=== PATIENT | female | born 2000 | race African-American/Black ===

== ENCOUNTER 2020-09-07 22:46 | Emergency (ER) | payer OTHER, SELFPAY ==
[2020-09-07 22:49] VITALS: BP 148/75; PULSE 138; RESP 18; TEMP 36.7; O2SAT 100
--- NOTE | 2020-09-07 23:09 | ED.EXTPRO ---
HPI - Extremity Problem General Chief complaint: Extremity Problem,Nontraumatic Stated complaint: possible blood clot Time Seen by Provider: 09/07/20 22:52 Source: patient Mode of arrival: ambulatory Limitations: no limitations History of Present Illness HPI Narrative: Patient is a 20-year-old female complaining of right lower extremity pain, right leg pain described as stiffness started approximately 2 days ago. Patient was seen at an urgent care today was told to go to the emergency room to rule out a blood clot. She denies any injury to her right lower extremity. Patient states that she has a -control implant on her left arm. Patient also states that if we can refill her BV prescription was prescribed and June that she lost. Patient states that she is currently on her menstrual cycle that started approximately 2 days ago. Patient denies any chest pain, shortness of breath or fever. Patient states that her heart rate is elevated because she just had an panic attack prior to arrival, states she has a history of anxiety. Review of Systems Review of Systems: All systems reviewed & are unremarkable except as noted in HPI and below Constitutional: Constitutional: Denies body ache(s), Denies chills, Denies excessive sweating, Denies fatigue, Denies fever(s), Denies headache(s), Denies lethargy, Denies malaise, Denies weakness and Denies weight loss Eyes: Eyes: Denies blurry vision, Denies change in vision and Denies loss of vision ENT: Denies dizziness, Denies ear discharge, Denies headache(s), Denies lip swelling, Denies epistaxis, Denies nasal congestion, Denies neck pain, Denies throat swelling and Denies tongue swelling Cardiovascular: Cardiovascular: Denies chest pain, Denies chest pain at rest, Denies chest pain with activity, Denies diaphoresis, Denies rapid heart rate, Denies edema, Denies irregular heart rhythm, Denies lightheadedness, Denies palpitations, Denies dyspnea and Denies dyspnea on exertion Respiratory: Respiratory: Denies chest congestion, Denies cough, Denies hemoptysis, Denies dyspnea and Denies dyspnea on exertion Gastrointestinal: Gastrointestinal: Denies abdominal pain, Denies melena, Denies hematochezia, Denies diarrhea, Denies nausea, Denies vomiting and Denies hematemesis Musculoskeletal: Musculoskeletal: Denies abnormal gait, Denies deformity, Denies limited range of motion, Denies neck pain and Denies numbness Neurologic: Denies Abnormal speech present, Denies abnormal gait, Denies confusion, Denies dizziness, Denies headache(s), Denies focal weakness, Denies loss of vision, Denies numbness, Denies Other visual disturbances, Denies Sensory deficit (Neuro) and Denies weakness Psychiatric: Psychiatric: Reports anxiety, Denies confusion, Denies depression, Denies auditory hallucinations, Denies homicidal ideation and Denies suicidal ideation Endocrine: Endocrine: Denies cold intolerance, Denies excessive sweating, Denies fatigue, Denies heat intolerance and Denies palpitations Hematologic/Lymphatic: Hematologic/Lymphatic: Denies easy bleeding and Denies easy bruising Allergic/Immunologic: Allergic/Immunologic: Denies lip swelling, Denies throat swelling and Denies tongue swelling Exam Const: General: cooperative, healthy appearing, comfortable, no acute distress, well developed, alert and awake; No confusion Orientation/consciousness: oriented to person, oriented to place, oriented to time, patient oriented x3 and No confusion Limitations: no limitations HENMT: Head: normal to inspection, normocephalic and atraumatic Ears: hearing grossly normal bilaterally, TM normal on the right and TM normal on the left General nose exam: Normal external nose present, Normal nares present and No nasal discharge present Face and sinus: normal facial exam Eyes: General: appearance normal, both eyes and all related structures Neck: Neck: normal visual inspection Resp: Effort & Inspection: normal respiratory effort, ab
[2020-09-08] MEDS: ENOXAPARIN 100 MG/ML SYRINGE SUB-Q (00:07)
[2020-09-08 00:15] VITALS: BP 149/79; PULSE 97; RESP 16; TEMP 36.6; O2SAT 100
== END 2020-09-08 00:17 | disposition home or self-care (01) ==
LOC: ANHED 23:23
PROVIDERS: Emergency Provider Emergency Medicine
DX: M79.604 Pain in right leg (principal); N76.0 Acute vaginitis
CPT/HCPCS: 81025; 96372; 99283; J1650

== ENCOUNTER 2020-09-08 07:45 | Outpatient (CLI) | payer OTHER, SELFPAY ==
--- NOTE | ~2020-09-08 | US_ITS ---
EXAMINATION: US venous doppler LE RT DATE: 09/08/2020 08:17 INDICATION: Right lower limb pain TECHNIQUE: Conklin scale images without and with compression and Doppler images of the right lower extre mity veins were obtained. COMPARISON: None FINDINGS: The right common femoral vein, profunda femoral vein, femoral vein, popliteal vein, peronea l trunk, posterior tibial veins, and greater saphenous vein are patent. IMPRESSION: 1. Patent right lower extremity veins. No evidence of deep venous thrombosis. Reviewed, dictated and finalized at location A. [employer]
== END 2020-09-08 07:46 | disposition home or self-care (01) ==
PROVIDERS: PCP Family Medicine; Visit Provider Family Medicine
DX: M79.661 Pain in right lower leg (principal)
CPT/HCPCS: 93971